=== PATIENT | female | born 1990 | race Two or more races ===

== ENCOUNTER 2018-09-09 11:19 | Outpatient (CLI) | payer OTHER | END 2018-09-09 11:22 | disposition home or self-care (01) | LOC: RX STUDY 11:19 | DX: N84.0 Polyp of corpus uteri (principal) ==

== ENCOUNTER 2018-09-11 09:46 | Outpatient (CLI) | payer OTHER | END 2018-09-11 17:00 | disposition home or self-care (01) | LOC: SONOGRAMA 09:46 | DX: R19.09 Other intra-abdominal and pelvic swelling, mass and lump (principal) ==